=== PATIENT | female | born 1990 | race Caucasian/White ===

== ENCOUNTER 2022-07-02 01:22 | Emergency (ER) | payer MEDICAID ==
[~2022-07-02] VITALS: Ht 167.6 cm; Wt 55.3 kg
[2022-07-02 01:30] VITALS: BP 107/73
--- NOTE | 2022-07-02 01:37 | NUR ---
Patient taken to bed 9.
--- NOTE | 2022-07-02 01:40 | NUR ---
C/O right hand infection x 3 days. Patient had right hand infection, Patient was admission on 06/30/[address] [facility]. Patient signed AMA. PMHx : DENIES
[2022-07-02 01:43] VITALS: BP 107/73
--- NOTE | 2022-07-02 01:56 | NUR ---
Dr. Paris examining patient.
[2022-07-02] MEDS ORDERED: CEPH-588 PO ×2 (02:03→02:22)
--- NOTE | 2022-07-02 02:08 | NUR ---
Patient discharged with v/s stable. Written and verbal after care instructions given and explained. Patient verbalized understanding. Ambulatory with steady gait. All questions addressed prior to discharge. Advised to follow up with PMD.
== END 2022-07-02 02:08 | disposition home or self-care (01) ==
LOC: MED 01:22
DX: S01.401D Unspecified open wound of right cheek and temporomandibular area, subsequent encounter (principal); Z88.5 Allergy status to narcotic agent; Z88.6 Allergy status to analgesic agent; Z79.899 Other long term (current) drug therapy; X58.XXXD Exposure to other specified factors, subsequent encounter
CPT/HCPCS: 99283